=== PATIENT | male | born 1990 | race Caucasian/White ===

== ENCOUNTER 2018-09-15 10:14 | Emergency (ER) | payer MEDICAID, OTHER ==
[~2018-09-15] VITALS: Ht 180.3 cm; Wt 112.2 kg
[~2018-09-15 10:14] MED LIST: NO HOME MEDS; ONDA4TAB6 PO
[2018-09-15 11:00] VITALS: BP 146/74
--- NOTE | 2018-09-15 12:14 | NUR ---
dr. [email or web address] at bedside.
[2018-09-15] MEDS ORDERED: LIDOcaine 1.5% w/epinephrine 1:200,000 5ml ampul IJ ONE (12:30)
[2018-09-15] MEDS ORDERED: LIDOcaine 1% w/epiNEPHrine 1:200,000 30ml vial IJ ONE (12:35)
[2018-09-15] MEDS ORDERED: sulfamethoxazole/trimethoprim DS (800/160mg) tablet PO ONE (12:50)
[2018-09-15] MEDS ORDERED: cephalexin 250mg capsule PO ONE (12:50)
[2018-09-15] MEDS ORDERED: BACDS PO (12:50)
[2018-09-15] MEDS ORDERED: CEPH500C5 PO (12:50)
== END 2018-09-15 13:12 | disposition home or self-care (01) ==
LOC: ER 10:14
DX: L02.211 Cutaneous abscess of abdominal wall (principal); F17.210 Nicotine dependence, cigarettes, uncomplicated; Z56.0 Unemployment, unspecified; Z88.6 Allergy status to analgesic agent; Z79.2 Long term (current) use of antibiotics; Z79.899 Other long term (current) drug therapy
CPT/HCPCS: 10060; 99283; J3490